=== PATIENT | female | born 1960 | race Caucasian/White ===

== ENCOUNTER 2017-03-08 23:17 | Emergency (ER) | payer MEDICAID ==
[2017-03-09 00:43] LABS: BILIRUBIN,URINE NEGATIVE (NEGATIVE)
[2017-03-09 00:52] LABS: UA CHARGE (STRIP ONLY) YES; UR CULTURE IF IND NOT INDICATED
--- NOTE | 2017-03-09 01:44 | XRAY Preliminary Report ---
Exam: XR Chest 2 View PA/LAT IMPRESSION: 1. Postoperative changes. No acute abnormality seen in the chest. [facility] SITE ID: [id number]
[2017-03-09 01:45] LABS: BASOPHILS # (AUTO) 0.1 10^3/uL (0.0-0.1); BASOPHILS % (AUTO) 1.1 %; EOSINOPHILS # (AUTO) 0.3 10^3/uL (0.0-0.7); EOSINOPHILS % (AUTO) 2.9 %; HCT - HEMATOCRIT 38.8 % (37.0-47.0); HGB - HEMOGLOBIN 13.5 g/dL (12.0-16.0); LYMPHOCYTES # (AUTO) 2.6 10^3/uL (1.5-3.5); LYMPHOCYTES % (AUTO) 23.8 %; MEAN CORPUSCULAR HEMOGLOBIN 34.2 pg (27.0-31.0); MEAN CORPUSCULAR HGB CONC 34.9 g/dL (32.0-36.0); MEAN CORPUSCULAR VOLUME 98.1 fL (81.0-99.0); MEAN PLATELET VOLUME 6.7 fL (7.9-10.8); MONOCYTES # (AUTO) 0.9 10^3/uL (0.0-1.0); MONOCYTES % (AUTO) 8.5 %; NEUTROPHILS # (AUTO) 6.9 10^3/uL (1.5-6.6); NEUTROPHILS % (AUTO) 63.7 %; NUCLEATED RED BLOOD CELLS AUTO 0.1 /100WBC; RED BLOOD COUNT 3.95 10^6/uL (4.20-5.40); RED CELL DISTRIBUTION WIDTH 13.2 % (12.0-15.0); UNCORRECTED WHITE BLOOD COUNT 10.7 x10^3/uL; WHITE BLOOD COUNT 10.7 x10^3/uL (4.8-10.8)
--- NOTE | 2017-03-09 01:46 | XRAY Report ---
EXAM: CHEST RADIOGRAPHY EXAM DATE: 03/09/2017 01:35 AM. CLINICAL HISTORY: Chest pain. Shortness of breath and productive cough. COMPARISON: None. TECHNIQUE: 2 views. FINDINGS: Lungs/Pleura: No alveolar consolidation or pleural effusion. No pneumothorax. Mediastinum: Heart and mediastinal contours are unremarkable. Other: Median sternotomy. IMPRESSION: 1. Postoperative changes. No acute abnormality seen in the chest. [facility] Referring Provider Line: [phone] SITE ID: [id number]
[2017-03-09 01:51] LABS: INR 1.1 (0.8-1.2)
[2017-03-09 01:54] LABS: MAGNESIUM 1.8 mg/dL (1.7-2.8)
[2017-03-09 02:03] LABS: PARTIAL THROMBOPLASTIN TIME 34.6 secs (24.9-33.3)
--- NOTE | 2017-03-09 02:57 | Ultrasound Preliminary Report ---
Exam: US Pel Non OB w/TV + Dop IMPRESSION: 1. Ovaries are not visualized. No suspicious adnexal lesion. 2. Uterus is surgically absent with normal appearance of the vaginal cuff. [facility] SITE ID: [id number]
--- NOTE | 2017-03-09 03:00 | Ultrasound Report ---
EXAM: PELVIC ULTRASOUND EXAM DATE: 03/09/2017 01:54 AM. CLINICAL HISTORY: Pelvic pain, history of cysts COMPARISON: CT 05/19/2016. TECHNIQUE: Realtime transabdominal pelvic scan performed to identify the uterus and adnexa and as an overview of other pelvic structures, followed by transvaginal scan to provide greater detail of the u terus and adnexa, with static image documentation. FINDINGS: Uterus: Surgically absent Right Ovary: Not visualized. Left Ovary: Not visualized. Fluid: No signficant free fluid. Other: No other significant findings. IMPRESSION: 1. Ovaries are not visualized. No suspicious adnexal lesion. 2. Uterus is surgically absent with normal appearance of the vaginal cuff. [facility] Referring Provider Line: [phone] SITE ID: [id number]
[2017-03-09 03:11] VITALS: BP 125/53
--- NOTE | 2017-03-09 03:17 | ED Physician Documentation ---
PD HPI ABD PAIN - Stated complaint Stated Complaint: ABD,BACK PX - Chief complaint Chief Complaint: Abd Pain - History obtained from History obtained from: Patient, Family - History of Present Illness Timing - onset: Chronic Timing - details: Gradual onset, Still present Quality: Cramping, Aching Location: Suprapubic, LLQ Radiation: Lower back, Left flank, Right flank Worsened by: Moving, Palpation Associated symptoms: Nausea. No: Fever, Vomiting, Diarrhea, Constipation Similar symptoms before: Work up / diagnostics, Treatment, Follow up Recently seen: Not recently seen - Additional information Additional information: Patient is a 56 year old female with a history of hysterectomy and chronic pelvic pain who is presenting to the emergency department for pelvic pain. patient states that she has had cysts in the past and states that she is having pain in her ovaries. Patient also states that she has had pelvic discharge and intermittent chest pain. Patient was supposed to go see her heart doctor this morning but her daughter slept through her alarm. Patient has been worked up for similar complaints in the past without a definitive diagnosis. Review of Systems Constitutional: reports: Chills. denies: Fever Eyes: denies: Loss of vision, Photophobia Ears: denies: Ear pain, Drainage/discharge Nose: denies: Rhinorrhea / runny nose, Congestion Throat: denies: Dental pain / toothache Cardiac: reports: Chest pain / pressure, Palpitations Respiratory: reports: Cough, Wheezing. denies: Dyspnea GI: reports: Abdominal Pain, Nausea. denies: Vomiting, Constipation, Diarrhea : reports: Discharge. denies: Dysuria Skin: denies: Rash, Lesions Musculoskeletal: reports: Back pain. 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 Cardiovascular: Other - Present Medications Home Medications: Ambulatory Orders Medication Instructions Recorded Confirmed Aspirin [Aspir 81] 81 mg PO DAILY 05/10/13 03/08/17 Fluticasone [Flonase] 1 sprays ARGELIA DAILY 05/10/13 03/08/17 Omeprazole [PriLOSEC] 40 mg PO DAILY 05/10/13 03/08/17 Oxybutynin [Ditropan] 5 mg PO QID 05/10/13 03/08/17 Trazodone HCl 50 mg PO HS 05/10/13 03/08/17 Venlafaxine [Effexor] 225 mg PO DAILY 05/10/13 03/08/17 Ziprasidone HCl [Geodon] 120 mg PO HS 05/10/13 03/08/17 Gabapentin 800 mg PO TID 05/19/16 03/08/17 - Allergies Allergies/Adverse Reactions: Allergies Allergy/AdvReac Type Severity Reaction Status Date / Time Penicillins Allergy Intermediate Hives Verified 09/21/16 13:03 codeine [Codeine] Allergy Mild Nausea Verified 09/21/16 13:03 - Social History Does the pt smoke?: Yes Smoking Status: Current every day smoker Does the pt drink ETOH?: No Does the pt have substance abuse?: No - Immunizations Immunizations are current?: Yes - POLST Patient has POLST: No PD ED PE NORMAL - Vitals Vital signs reviewed: Yes (within normal limits) - General General: Alert and oriented X 3 - HEENT HEENT: Atraumatic, PERRL, Moist mucous membranes, Pharynx benign - Neck Neck: Supple, no meningeal sign, No JVD - Cardiac Cardiac: RRR, No murmur - Respiratory Respiratory: No respiratory distress, Clear bilaterally - Derm Derm: Normal color, Warm and dry - Extremities Extremities: No deformity, No edema, No calf tenderness / cord - Neuro Neuro: Alert and oriented X 3, No motor deficit, No sensory deficit, Normal speech PD ED PE EXPANDED - HEENT HEENT: Dry mucous membranes, Other (no teeth) - Abdomen Abdomen: Tender to palpation, Periumbilical, Suprapubic. No: Rebound, Guarding - Female Female : Normal external, Vaginal Discharge (very minimal white vaginal discharge ), Cultures sent, Assortment Planner present. No: Vaginal Bleeding, Tissue present, Adnexal Mass, Adnexal Tenderness Results - Vitals Vitals: Vital Signs - 24 hr 03/08/17 03/09/17 03/09/17 23:23 01:57 03:11 Temperature 36.3 C L Heart Rate 89 64 68 Respiratory 16 18 18 Rate Blood Pressure 132/71 H 124/81 H 125/53 L O2 Saturation 97 96 97 Oxygen O2 Source Room air - EKG (time done) 0024 Rate: Rate (enter#) (54) Rhythm: NSR [place]: Normal Intervals: Other (irregular) Ischemia: Normal ST segments Compare to prior EKG: Old EKG unavailable - Labs Labs: Microbiology 03/09/17 01:16 Wet Prep - Final Genital - Vaginal Laboratory Tests 03/09/17 03/09/17 03/09/17 00:00 00:39 01:32 WBC 10.7 RBC 3.95 L Hgb 13.5 Hct 38.8 MCV 98.1 MCH 34.2 H MCHC 34.9 RDW 13.2 Plt Count 330 MPV 6.7 L Neut # 6.9 H Lymph # 2.6 Bowie # 0.9 Eos # 0.3 Baso # 0.1 Absolute Nucleated RBC 0.01 Nucleated RBCs 0.1 PT INR APTT Phosphorus Magnesium B-Natriuretic Peptide TSH Urine Color YELLOW Urine Clarity CLEAR Urine pH 6.0 Ur Specific [place] <=1.005 Urine Protein NEGATIVE Urine Glucose (UA) NEGATIVE Urine Ketones NEGATIVE Urine Occult Blood NEGATIVE Urine Nitrite NEGATIVE Urine Bilirubin NEGATIVE Urine Urobilinogen 0.2 (NORMAL) Ur Leukocyte Esterase NEGATIVE Ur Microscopic Review NOT INDICATED Urine Culture Comments NOT INDICATED Urine Opiates Screen NEGATIVE Ur Oxycodone Screen NEGATIVE Urine Methadone Screen NEGATIVE Ur Propoxyphene Screen NEGATIVE Ur Barbiturates Screen NEGATIVE Ur Tricyclics Screen NEGATIVE Ur Phencyclidine Scrn NEGATIVE Ur Amphetamine Screen POSITIVE H U Methamphetamines Scrn POSITIVE H U Benzodiazepines Scrn NEGATIVE Urine Cocaine Screen NEGATIVE U Cannabinoids Screen POSITIVE H 03/09/17 03/09/17 03/09/17 01:32 01:32 01:32 WBC RBC Hgb Hct MCV MCH MCHC RDW Plt Count MPV Neut # Lymph # [place] # Eos # Baso # Absolute Nucleated RBC Nucleated RBCs PT 12.0 INR 1.1 APTT 34.6 H Phosphorus Magnesium B-Natriuretic Peptide 108 H TSH 1.79 Urine Color Urine Clarity Urine pH Ur Specific [place] Urine Protein Urine Glucose (UA) Urine Ketones Urine Occult Blood Urine Nitrite Urine Bilirubin Urine Urobilinogen Ur Leukocyte Esterase Ur Microscopic Review Urine Culture Comments Urine Opiates Screen Ur Oxycodone Screen Urine Methadone Screen Ur Propoxyphene Screen Ur Barbiturates Screen Ur Tricyclics Screen Ur Phencyclidine Scrn Ur Amphetamine Screen U Methamphetamines Scrn U Benzodiazepines Scrn Urine Cocaine Screen U Cannabinoids Screen 03/09/17 01:32 WBC RBC Hgb Hct MCV MCH MCHC RDW Plt Count MPV Neut # Lymph # [place] # Eos # Baso # Absolute Nucleated RBC Nucleated RBCs PT INR APTT Phosphorus 4.0 Magnesium 1.8 B-Natriuretic Peptide TSH Urine Color Urine Clarity Urine pH Ur Specific [place] Urine Protein Urine Glucose (UA) Urine Ketones Urine Occult Blood Urine Nitrite Urine Bilirubin Urine Urobilinogen Ur Leukocyte Esterase Ur Microscopic Review Urine Culture Comments Urine Opiates Screen Ur Oxycodone Screen Urine Methadone Screen Ur Propoxyphene Screen Ur Barbiturates Screen Ur Tricyclics Screen Ur Phencyclidine Scrn Ur Amphetamine Screen U Methamphetamines Scrn U Benzodiazepines Scrn Urine Cocaine Screen U Cannabinoids Screen - Rads (name of study) pelvic ultrasound Radiology: Final report received (ovaries no visualized, uterus surgically absent. ) chest x-ray Radiology: Final report received (post operative changes, no acute abnormality) PD MEDICAL DECISION MAKING - ED course Complexity details: reviewed old records, reviewed results, re-evaluated patient , considered differential, d/w patient ED course: Patient was seen and examined at bedside. IV access was gained and labs were drawn. ekg was performed and had non-specific abnormalities. labs and urine showed no abnormalites aside from polysubstance. chest x-ray was within normal limits. pelvic exam was unremarkable. pelvic ultrasound was performed and was within normal limits. CT was offered for the patient but she stated she wanted to leave and didn't want it. patient signed out ama and left in stable condition. Departure - Departure Disposition: Against Medical Advice Clinical Impression: Left sided abdominal pain of unknown cause Condition: Good Discharge Date/Time: 03/09/17 03:20
== END 2017-03-09 03:20 | disposition left against medical advice (07) ==
LOC: ED 23:17
DX: R10.32 Left lower quadrant pain (principal); G89.29 Other chronic pain; R10.2 Pelvic and perineal pain; R07.9 Chest pain, unspecified; R68.83 Chills (without fever); R05 Cough; R06.2 Wheezing; F41.9 Anxiety disorder, unspecified; F31.9 Bipolar disorder, unspecified; F17.200 Nicotine dependence, unspecified, uncomplicated; Z90.49 Acquired absence of other specified parts of digestive tract; Z90.710 Acquired absence of both cervix and uterus
CPT/HCPCS: 36415; 71020; 76830; 76856; 80306; 81001; 81003; 83735; 83880; 84100; 84443; 85025; 85610; 85730; 87086; 87210; 87491; 87591; 93005; 93975; 99284